=== PATIENT | male | born 1940 | race Caucasian/White ===

== ENCOUNTER 2023-08-07 07:47 | Emergency (ER) | payer MEDICARE, SELFPAY ==
--- NOTE | ~2023-08-07 | XR_ITS ---
XR forearm RT 2V 08/07/2023 08:01 Indication: Laceration right arm. Status post injury. Procedure: 2 views right forearm Comparison: No prior studies for comparison. Findings: There is a small foreign body in the soft tissues along the ventral radial aspect of the di stal forearm there is soft tissue irregularity consistent with laceration more proximally. There is a linear ossific density proximal to the olecranon process, likely related to old trauma. No acute fra cture or traumatic malalignment. Impression: 1: Small foreign body in the soft tissues overlying the ventral radial aspect of the forearm. Reviewed, dictated and finalized at location B. Impression: 1: Small foreign body in the soft tissues overlying the ventral radial aspect o f the forearm.
[2023-08-07 07:55] VITALS: BP 142/106; PULSE 87; RESP 16; TEMP 36.8; O2SAT 99
[2023-08-07] MEDS: TETANUS,DIPHTHERIA,AC PERTUSSIS ADULT (0.5 ML) BOOSTRIX IM (08:08)
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
[2023-08-07 09:43] VITALS: BP 127/88; PULSE 86; RESP 16; O2SAT 98
== END 2023-08-07 09:45 | disposition home or self-care (01) ==
PROVIDERS: Emergency Provider Emergency Medicine; PCP Nurse Practitioner Adult Health
DX: S51.811A Laceration without foreign body of right forearm, initial encounter (principal); W45.8XXA Other foreign body or object entering through skin, initial encounter; Z23 Encounter for immunization; Z87.891 Personal history of nicotine dependence
CPT/HCPCS: 12002; 73090; 90471; 90715; 99283

== ENCOUNTER 2024-07-23 09:52 | Emergency (ER) | payer MEDICARE, BC, SELFPAY ==
--- OUTSIDE RECORDS SUMMARY | 2024-07-23 10:00 | XMS_ITS | Data Portability ---
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 He now has patellofemoral pain but this is resolving with conservative measures on his own at home. He declined formal x-rays today he is doing much better his exam was fairly benign today. I have advised him to continue with wlkv-qzi-sphliih anti-inflammatory medication and activity modification when he starts to feel a bit better he can get back into bicycling start slowly with it take short rides and we feels good he can start to take longer rides. If his knee pain gets worse I have advised him to come back and see me we could try a shot of cortisone if necessary. Today he declined any prescription medication or cortisone. He voiced understanding agrees above plan call for any further problems difficulties or questions. Not available 11/21/2023 14:58:06 01/01/2024 01/01/2024 By history and exam the patient is noted to have continued anterior left knee pain mostly in the patellofemoral articulation after a fall several months ago. We have talked about treatment options today he has declined formal therapy but he would like a shot of cortisone. He also declined prescription anti-inflammatory medication he is going to continue with Advil takh-gqm-thwgaak as needed. Under sterile conditions at his request I injected the patient's left knee joint in the office with 4 cc 0.5% bupivacaine and 20 mg of Kenalog. The patient tolerated the procedure well. I will see him back as needed we will give it a couple of months if his knee pain continues we could consider doing gel shot series. He voiced understanding and agrees above plan call for any further problems difficulties or questions. Not available 01/01/2024 10:07:51 Plan of Treatment Reminders Order Date Submit Date Provider Last Modified By Organization Details Last Modified Time Details Appointments Follow Up 15 2024 08:00A MATEO Lindsey Not available Not available Not available Lab lipid panel, serum [address], [address] [place] [address], [id number], 05/31/2024 08:33:17 CMP, serum or plasma [address], [address] [place] [address], [id number], 05/31/2024 08:33:17 CK (creatine kinase), total, serum [address], [address] [place] [address], [id number], 05/31/2024 08:33:17 TSH + free T4, serum [address], [address] [place] [address], [address], 02/13/2024 08:45:25 lipid panel, serum [address], [address] [place] [address], [address], 02/13/2024 08:45:24 CMP, serum or plasma [address], [address] [place], [address], 02/13/2024 08:45:25 CK (creatine kinase), total, serum 2023 [facility], [address] [place], [address], 02/13/2024 08:45:25 Referral None recorded. Procedures injection /aspirati on joint/bur sa (PROC) 2023 024 [email or web address] In-Office Order, Internal Use Only DO Not Attach Compendium DO Not Attach Compendium, Do Not Delete/merge, [id number] 01/01/2024 09:57:36 Surgeries None recorded. Imaging None recorded. Medication Orders bupivacai ne HCl 0.5 % (5 mg/mL) injection solution 2023 [id number], [address] [place], [place], [id number], 01/01/2024 10:43:27 Kenalog 10 mg/mL suspensio n for injection 2023 024 [id number], [address] [place], [place], [phone], 01/01/2024 10:43:27 Patient TargetsNo targets recorded. Patient Instructions Encounter Date Encounter Id Patient Instructions Last Modified By Organization Details Last Modified Time 02/06/2024 [id number] refused rosuvastatin [email or web address] Not available 02/06/2024 11:22:21 Reason for Referral None Reported. Results Created Date Observation Date Name Description Value Unit Range Abnormal Flag Note LastModifiedBy Organization Detail LastModifiedTime 05/03/1905/04/2024 LIPID PANEL , STAND KAJAL cholesterol, total 237 mg/dL <200 high Not Available [facility] [address] [place], [address], 05/04/2024 05:42:04 05/03/1905/04/2024 LIPID PANEL , STAND KAJAL HDL cholesterol 80 mg/dL > or = 40 normal Not Available [facility] [address] [place], [address], 05/04/2024 05:42:04 05/03/1905/04/2024 LIPID PANEL , STAND KAJAL triglyceride s 71 mg/dL <150 normal Not Available [facility] [address] [place], [address], 05/04/2024 05:42:04 05/03/1905/04/2024 LIPID PANEL , STAND KAJAL LDL-choleste rol 140 mg/dL _(eleazar c) high Refer ence range : <100 Sydney able range <100 mg/dL for prima ry preve ntion ; <70 mg/dL for patie nts with CHD or diabe tic patie nts with > or = 2 CHD risk facto rs. LDL-C is now calcu lated using the Tuyet pollard-Hop kins fabiou clarke n, which is a valid ated novel metho d provi ding izabel r accur acy than the Fried diana equat ion in the estim ation of LDL-C . Tuyet pollard SS et al. MANOHAR. 2013; 310(1 9): 2061- 2068 (http ://ed ucati on.Qu Dunia [employer]. 66. com/f aq/FA Q164) Not Available [facility] [place] [address] [place], [address], 05/04/2024 05:42:04 05/03/1905/04/2024 LIPID PANEL , STAND KAJAL chol/HDLC ratio 3.0 (calc ) <5.0 normal Not Available [facility] [address] [facility] [place] [place], [address], 05/04/2024 05:42:04 05/03/1905/04/2024 LIPID PANEL , STAND KAJAL non HDL cholesterol 157 mg/dL _(eleazar c) <130 high For patie nts with diabe jhonathan plus 1 major ASCVD risk facto r, treat ing to a non-H DL-C goal of <100 mg/dL (LDL- C of <70 mg/dL ) is roxi cadeo n. Not Available [address], [address], 05/04/2024 05:42:04 05/03/1905/04/2024 TSH+F REE T4 TSH 3.85 mIU/L 0.40-4 .50 normal Not Available [address], [address], 05/04/2024 05:42:05 05/03/1905/04/2024 TSH+F REE T4 T4, free 1.2 NG/dL 0.8-1. 8 normal Not Available [address], [address], 05/04/2024 05:42:05 05/03/19 25 05/04/2024 COMPR EHENS KEAGAN METAB OLIC PANEL glucose 92 mg/dL 65-99 normal Fasti ng refer ence inter braxton Not Available [address], [address], 05/04/2024 05:42:07 05/03/1905/04/2024 COMPR EHENS KEAGAN METAB OLIC PANEL urea nitrogen (BUN) 19 mg/dL 7-25 normal Not Available [address], [address], 05/04/2024 05:42:07 05/03/19 25 05/04/2024 COMPR EHENS KEAGAN METAB OLIC PANEL creatinine 0.98 mg/dL 0.70-1 .22 normal Not Available [address], [address], 05/04/2024 05:42:07 05/03/1905/04/2024 COMPR EHENS KEAGAN METAB OLIC PANEL eGFR 77 mL/mi n/1.7 3m2 > or = 60 normal Not Available [address] [place] [address] [place], [address], 05/04/2024 05:42:07 05/03/1905/04/2024 COMPR EHENS KEAGAN METAB OLIC PANEL BUN/creatini ne ratio SEE NOTE: (calc ) 6-22 Not Repor maryann: BUN and Creat inine are withi n refer ence range . Not Available [address], [address], 05/04/2024 05:42:07 05/03/19 25 05/04/2024 COMPR EHENS KEAGAN METAB OLIC PANEL sodium 140 mmol/ L 135-14 6 normal Not Available [address], [address], 05/04/2024 05:42:07 05/03/19 25 05/04/2024 COMPR EHENS KEAGAN METAB OLIC PANEL potassium 4.5 mmol/ L 3.5-5. 3 normal Not Available [address] [place] [address] [place], [address], 05/04/2024 05:42:07 05/03/19 25 05/04/2024 COMPR EHENS KEAGAN METAB OLIC PANEL chloride 101 mmol/ L 98-110 normal Not Available [address], [address], 05/04/2024 05:42:07 05/03/19 25 05/04/2024 COMPR EHENS KEAGAN METAB OLIC PANEL carbon dioxide 32 mmol/ L 20-32 normal Not Available [address], [address], 05/04/2024 05:42:07 05/03/19 25 05/04/2024 COMPR EHENS KEAGAN METAB OLIC PANEL calcium 9.4 mg/dL 8.6-10 .3 normal Not Available [address] [place], [address], 05/04/2024 05:42:07 05/03/19 25 05/04/2024 COMPR EHENS KEAGAN METAB OLIC PANEL protein, total 6.4 g/dL 6.1-8. 1 normal Not Available [address], [address], 05/04/2024 05:42:07 05/03/1905/04/2024 COMPR EHENS KEAGAN METAB OLIC PANEL albumin 4.4 g/dL 3.6-5. 1 normal Not Available [address], [address], 05/04/2024 05:42:07 05/03/1905/04/2024 COMPR EHENS KEAGAN METAB OLIC PANEL globulin 2.0 g/dL_ (calc ) 1.9-3. 7 normal Not Available [address], [address], 05/04/2024 05:42:07 05/03/1905/04/2024 COMPR EHENS KEAGAN METAB OLIC PANEL albumin/glob ulin ratio 2.2 (calc ) 1.0-2. 5 normal Not Available [address], [address], 05/04/2024 05:42:07 05/03/1905/04/2024 COMPR EHENS KEAGAN METAB OLIC PANEL bilirubin, total 0.9 mg/dL 0.2-1. 2 normal Not Available [address], [address], 05/04/2024 05:42:07 05/03/1905/04/2024 COMPR EHENS KEAGAN METAB OLIC PANEL alkaline phosphatase 83 U/L 35-144 normal Not Available [address], [address], 05/04/2024 05:42:07 05/03/1905/04/2024 COMPR EHENS KEAGAN METAB OLIC PANEL AST 19 U/L 10-35 normal Not Available [place] [address] [place], [address], 05/04/2024 05:42:07 05/03/19 25 05/04/2024 COMPR EHENS KEAGAN METAB OLIC PANEL ALT 11 U/L 9-46 normal Not Available [place] [address] [place], [address], 05/04/2024 05:42:07 05/03/19 25 05/04/2024 CREAT INE KINAS E, TOTAL creatine kinase, total 87 U/L 17-247 normal Not Available [address] [place] [address] [place], [address], 05/04/2024 05:42:08 Result Notes None recorded. Problems Name Problem SNOMED Code Status Onset Date Resolution Date Notes Provider Name and Address Organization Details Recorded Time Nocturia 372255480 Active Not Available [facility] 3 07:29:45 Wound of skin 733451263 Active Not Available [facility] 3 07:29:45 Knee pain Active Not Available [facility] 3 07:29:45 Arthritis 0891690 Active Not Available [facility] 3 07:29:45 Hyperlipi demia 13699440 Active he does not want to take a chol pill MATEO Koehler [address], [place], [address] , [facility] 3 17:15:17 Screening for malignant neoplasm of prostate Active 2022 MATEO Koelher [address], [place], [address] , [facility] 3 15:07:46 At increased risk of nutrition al deficit 547684294 Active 2022 MATEO Koehler [address], [place], [address] , [facility] 3 15:08:22 Strain of foot 67958537839 Active 2022 anterior lateral MATEO Koehler [address], [address], [place], [address] , [facility] 3 15:16:08 Hypothyro idism 39498629 Active 2022 MATEO Koehler [address], [address], [place], [address] , [facility] 3 09:35:14 Serum vitamin B12 borderlin e low 149287491 Active 2022 MATEO Koehler [address], [address], [place], [address] , [facility] 3 09:37:47 Vitamin D deficienc y 16841891 Active 2022 MATEO Koehler [address], [address], [place], [address] , [facility] 3 09:38:04 Serum vitamin B12 below reference range 788652039 Active 2022 MATEO Koehler [address], [address], [place], [address] , [facility] 3 09:39:17 Gout 81751692 Active 2023 MATEO Koehler [address], [address], [place], [address] , [facility] 4 09:32:00 Pain of left knee region 87664567124 4109 Active 2023 MATEO Koehler [address], [address], [place], [address] , [facility] 4 11:22:46 Pain of left knee joint 48043718136 4107 Active 2023 Lilia Dumont, [place] null, [place] [facility] 4 14:29:51 Osteoarth ritis of left knee joint 24997205177 9109 Active 2023 MATEO Gil [address], [place], [address] , [facility] 4 16:57:25 Effusion of joint of left knee 94880861345 9105 Active 2023 MATEO Gil [address], [place], [address] , [facility] 4 16:57:30 Celluliti s 997649519 Active 2023 MATEO Koehler [address], [place], [address] , [facility] 4 12:43:18 Contusion of left knee 96927253223 361426 Active 2023 MATEO Gil [address], [place], [address] , [facility] 4 14:58:35 Problem Notes None recorded. Procedures Surgical History Date Name Laterality Status Provider Name and Address Organization Details Recorded Time 4 Suture Removal completed MATEO Koehler [address], [place], [address], [facility] 09/17/2023 15:54:00 4 Suture Removal completed MATEO Koehler [address], [address], [place], [address], [facility] 09/13/2023 22:03:58 3 Medicare Wellness CPT Code, subsequent completed Fela Rush RN [facility] 11/19/2022 10:15:30 Laminectomy completed Lilia Dumont CNA [facility] 06/20/2023 14:29:09 Imaging Results None recorded. Procedure Notes None recorded. Medical Equipment None Reported. Allergies No known drug allergies Medications Name Sig Start Date Stop Date Status Note LastModified by Organization Details LastModified Time cyclobenz aprine 10 mg tablet Take 1 tablet twice a day by oral route for 10 days. active Not Available Not Available No t Available prednison e 10 mg tablet 08/19 completed Not Available Not Available Not Available bupivacai ne HCl 0.5 % (5 mg/mL) injection solution Take 20 mg by injectio n route. 2023 active Not Available Not Available Not Avai lable prednison e 20 mg tablet 10/12 completed Not Available Not Available Not Available allopurin ol 100 mg tablet 1 tab po at bedtime for 7 days , 2 tabs at bedtime for 7 days , 3 tabs at bedtime and maintain active Not Available Not Available No t Available ciproflox acin 500 mg tablet Take 1 tablet every 12 hours by oral route for 10 days. 02/05 completed Not Available Not Available Not Available sulfameth oxazole 800 mg-trimet hoprim 160 mg tablet active Not Available Not Available Not Available levothyro xine 25 mcg tablet Take 1 tablet every day by oral route in the morning for 30 days. 06/15 completed Not Available Not Available Not Available prednison e 10 mg tablets in a dose pack Take 1 tab by mouth, 3 times a day for 3 daysTake 1 tab by mouth 2 times a day for 2 daysTake 1 tab by mouth once a day for 1 day 08/19 completed Not Available Not Available Not Available Kenalog 10 mg/mL suspensio n for injection Take 20 mg by injectio n route. 2023 active [facility]: [id number] 4-20 Not Available Not Available Not Available levothyro xine 50 mcg tablet TAKE 1 TABLET BY MOUTH EVERY DAY 2024 active Not Available Not Available Not Avai lable cephalexi n 500 mg capsule Take 1 capsule 3 times a day by oral route for 7 days. 08/21 completed Not Available Not Available Not Available indometha maikel 50 mg capsule Take 1 capsule twice a day by oral route with meals for 10 days. 06/19 completed Not Available Not Available Not Available diclofena c sodium 75 mg tablet,de layed release 10/12 completed Not Available Not Available Not Available hydroxyzi ne HCl 25 mg tablet 10/12 completed Not Available Not Available Not Available triamcino lone acetonide 0.1 % lotion APPLY A THIN LAYER TO THE AFFECTED AREA(S) BY TOPICAL ROUTE 2 TIMES PER DAY active Not Available Not Available No t Available methylpre dnisolone 4 mg tablets in a dose pack Use as directed 06/15 completed Not Available Not Available Not Available ketoconaz ole 2 % topical cream APPLY TO both feet twice a day active Not Available Not Available No t Available naproxen 500 mg tablet Take 1 tablet twice a day by oral route. active Sprained right ankle. vs Gout. Not Available Not Available Not Available rosuvasta tin 10 mg tablet Take 1 tablet every day by oral route for 90 days, for high chol. active Not Available Not Available No t Available Aspir-81 1 daily 10/12 completed Not Available Not Available Not Available cholecalc iferol (vitamin D3) 50 mcg (2,000 unit) capsule Take 1 capsule every day by oral route after meals for 30 days. 2024 active Not Available Not Available Not Avai lable Colcrys 0.6 mg tablet Take 2 tablets po now, then 1 tablet po 1 hour later 10/30 completed Not Available Not Available Not Available ropivacai ne (PF) 5 mg/mL (0.5 %) injection solution Take 20 mg by injectio n route. 2023 active Not Available Not Available Not Avai lable mecobalam in (vitamin B12) 1,000 mcg disintegr ating tablet,[facility] 1 tablet twice a day by sublingu al route for 30 days. 2022 active Not Available Not Available Not Avai lable Vitals Date Recorded Body height Body mass index (BMI) Body weight Provider Name and Address Organization Details Last Updated DateTime 11/21/2023 167.64 cm 21.8 kg/m2 85438.97 g Lilia Dumont CNA [facility] 11/21/2023 14:37:27 Date Recorded Body height Body mass index (BMI) Body weight Provider Name and Address Organization Details Last Updated DateTime 01/01/2024 167.64 cm 21.8 kg/m2 62843.97 g Lilia Dumont CNA [facility] 01/01/2024 09:36:57 Date Recorded Body height Body mass index (BMI) Body weight Body temperature Heart rate Oxygen saturation Oxygen saturation in Arterial blood by Pulse oximetry Systolic blood pressure Diastolic blood pressure Provider Name and Address Organization Details Last Updated DateTime 4 167.64 cm 22.4 kg/m2 15851.3 4 g 97.5 [degF] 54 /min 98 % 98 % 136 mm[Hg] 78 mm[Hg] Louise Benton RN [facility] [employer] [facility] 4 11:10:05 Date Recorded Body height Body mass index (BMI) Body weight Body temperature Heart rate Oxygen saturation Oxygen saturation in Arterial blood by Pulse oximetry Systolic blood pressure Diastolic blood pressure Provider Name and Address Organization Details Last Updated DateTime 5 167.64 cm 22.8 kg/m2 97639.5 2 g 97.5 [degF] 74 /min 98 % 98 % 134 mm[Hg] 82 mm[Hg] Pantera Estrada RN [facility] [employer] [facility] 5 09:33:28 Social History Question Answer Notes LastModified by Organization Details LastModified Time Tobacco Smoking Status Former Smoker Not Available [facility] 06/05/2022 07:26:02 Do You Have An Advance Directive? No MIGRATION.0301 [id number] Information not available 06/05/2022 What Is Your Level Of Alcohol Consumption? Occasional MIGRATION.0301 [id number] Information not available 06/05/2022 Do You Wear A Helmet When Biking? Yes MIGRATION.030 [id number] Information not available 06/05/2022 Are You Blind Or Do You Have Difficulty Seeing? Yes Wears Glasses MIGRATION.030 [id number] Information not available 06/05/2022 What Is Your Level Of Caffeine Consumption? Moderate MIGRATION.030 294413 Information not available 06/05/2022 In The 14 Days Before Symptom Onset, Have You Had Close Contact With A Laboratory-confi rmed COVID-19 While That Case Was Ill? No MIGRATION.030 [id number] Information not available 06/05/2022 In The 14 Days Before Symptom Onset, Have You Had Close Contact With A Person Who Is Under Investigation For COVID-19 While That Person Was Ill? No MIGRATION.0301 [id number] Information not available 06/05/2022 Are You Deaf Or Do You Have Serious Difficulty Hearing? No MIGRATION.0301 270554 Information not available 06/05/2022 What Type Of Diet Are You Following? REGULAR MIGRATION.0301 969623 Information not available 06/05/2022 What Is Your Occupation? [employer] Retired MIGRATION.0301 [id number] Information not available 06/05/2022 How Many Days Of Moderate To Strenuous Exercise, Like A Brisk Walk, Did You Do In The Last 7 Days? 0 MIGRATION.0301 [id number] Information not available 06/05/2022 Have There Been Any Changes To Your Family Or Social Situation? No MIGRATION.0301 875704 Information not available 06/05/2022 Are There Any Guns Present In Your Home? Yes MIGRATION.0301 857324 Information not available 06/05/2022 Do You Use Insect Repellent Routinely? Yes MIGRATION.0301 840883 Information not available 06/05/2022 Where Do You Live? SingleLevelHouse MIGRATION.0301 137840 Information not available 06/05/2022 Advance Directive- Providers Has Reviewed Directive And Consents To Follow Them (insert Provider Name With Any Objectives In Notes Field) No MIGRATION.0301 [id number] Information not available 06/05/2022 Do You Have A Medical Power Of Twisting Operator? No MIGRATION.0301 [id number] Information not available 06/05/2022 What Was The Date Of Your Most Recent Tobacco Screening? 10/30/2020 MIGRATION.0301 318573 Information not available 06/05/2022 Have You Ever Been Counseled For Unhealthy Alcohol Use? No MIGRATION.0301 420265 Information not available 06/05/2022 Do You Have Any Pets? No MIGRATION.0301 177843 Information not available 06/05/2022 Do You Use Your Seat Belt Or Car Seat Routinely? Yes MIGRATION.0301 977233 Information not available 06/05/2022 Do You Have Smoke And Carbon Monoxide Detectors In Your Home? Yes MIGRATION.0301 950117 Information not available 06/05/2022 At What Age Did You Start Smoking Tobacco? 14 MIGRATION.0301 239294 Information not available 06/05/2022 Are You Passively Exposed To Smoke? No MIGRATION.0301 630721 Information not available 06/05/2022 Are There Any Smokers In Your House? No MIGRATION.0301 [id number] Information not available 06/05/2022 Do You Participate In Social Media? Yes MIGRATION.0301 305498 Information not available 06/05/2022 What Types Of Sporting Activities Do You Participate In? None MIGRATION.0301 621077 Information not available 06/05/2022 Do You Feel Stressed (tense, Restless, Nervous, Or Anxious, Or Unable To Sleep At Night)? QB2163-0 MIGRATION.0301 137505 Information not available 06/05/2022 Do You Use Any Illicit Or Recreational Drugs? No MIGRATION.0301 412959 Information not available 06/05/2022 Do You Use Sunscreen Routinely? Yes MIGRATION.0301 664938 Information not available 06/05/2022 Has Tobacco Cessation Counseling Been Provided? No MIGRATION.0301 172156 Information not available 06/05/2022 Have You Recently Traveled Abroad? No MIGRATION.0301 801562 Information not available 06/05/2022 Are You Currently In School? No MIGRATION.0301 912901 Information not available 06/05/2022 Do You Have Any Dietary Restrictions? No MIGRATION.0301 220738 Information not available 06/05/2022 Do You Or Have You Ever Used Any Other Forms Of Tobacco Or Nicotine? No MIGRATION.0301 372926 Information not available 06/05/2022 Sex: Unknown Functional Status Question Answer Note LastModified by [employer] ion Details LastModified Time Do you have difficulty walking or climbing stairs? No MIGRATION.[id number] 026 Information not available 06/05/2022 Do you have transportation difficulties? No MIGRATION.[id number] 026 Information not available 06/05/2022 Are you able to walk? YESWOREST MIGRATION.7795202 026 Information not available 06/05/2022 Do you have difficulty doing errands alone? No MIGRATION.2992438 026 Information not available 06/05/2022 Are you able to care for yourself? Yes MIGRATION.9394071 026 Information not available 06/05/2022 Do you have difficulty dressing or bathing? No MIGRATION.5498369 026 Information not available 06/05/2022 What is your exercise level? Occasional MIGRATION.6670117 026 Information not available 06/05/2022 Mental Status Question Answer Note LastModified by [employer] ion Details LastModified Time Do you have difficulty concentrating, remembering or making decisions? No MIGRATION.[id number] 6 Information not available 06/05/2022 Family History Relationship Description Onset Age of this Age Resolved Age Notes LastModified by Organization Details LastModified Time Father Malignant tumor of lung [id number] Not available 06/05/2022 07:26:38 Medical History Condition Response ARTHRITIS Y HIGH CHOLESTEROL / HYPERLIPIDEMIA Y GOUT Y Immunizations Vaccine Type Date Status Note Provider Nam e and Address Organization Details Recorded Time Influenza, high-dose, quadrivalent, PF 3 completed Ivelisse Loza MD [address] [facility], [address], [place], [address], [employer] [facility] 12/16/2022 14:07:11 zoster recombinant 3 completed Ivelisse Loza MD [address] [facility], [address], [place], [address], [employer] [facility] 06/13/2022 05:49:12 Influenza, split virus, quadrivalent, preservative 9 completed Anusha Stapleton CMA null, [facility] [employer] [facility] 11/19/2022 15:42:41 Tdap 6 completed Anusha Stapleton SAP BUSINESS ANALYST null, [facility] [employer] [facility] 11/19/2022 15:42:41 Influenza, split virus, trivalent, preservative 5 completed Not Available [facility] 06/05/2022 07:34:22 zoster live 2 completed Anusha Stapleton CMA null, [place] [employer] [facility] [place] [facility] 11/19/2022 15:42:41 pneumococcal polysaccharide PPV23 7 completed Not Available [facility] 06/05/2022 07:34:22 Td (adult) 5 completed Not Available [facility] 06/05/2022 07:34:22 zoster recombinant 3 completed Not Available [facility] 06/05/2022 07:34:23 Influenza, high-dose, quadrivalent, PF 2 completed Not Available [facility] 06/05/2022 07:34:23 Influenza, high-dose, trivalent, PF 8 completed Not Available [facility] 06/05/2022 07:34:23 Influenza, high-dose, trivalent, PF 7 completed Not Available [facility] 06/05/2022 07:34:23 Pneumococcal conjugate PCV 13 7 completed Not Available [facility] 06/05/2022 07:34:23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
[2024-07-23 11:01] VITALS: BP 151/70; PULSE 71; RESP 16; TEMP 36.8; O2SAT 98
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
== END 2024-07-23 12:41 | disposition home or self-care (01) ==
PROVIDERS: Emergency Provider Physician Assistant; PCP Nurse Practitioner Adult Health
DX: S01.311A Laceration without foreign body of right ear, initial encounter (principal); S61.210A Laceration without foreign body of right index finger without damage to nail, initial encounter; M10.9 Gout, unspecified; Z87.891 Personal history of nicotine dependence; V17.4XXA Pedal cycle driver injured in collision with fixed or stationary object in traffic accident, initial encounter; Y93.55 Activity, bike riding
CPT/HCPCS: 12001; 12002; 12052; 99283; J2003; J2004